=== PATIENT | male | born 1955 | race Caucasian/White ===

== ENCOUNTER → 2023-11-15 07:19 | Outpatient (REF) | payer MEDICARE, SELFPAY | LOC: RCS 07:19 | PROVIDERS: ATTENDING PHYSICIAN Internal Medicine Cardiovascular Disease; FAMILY PHYSICIAN Family Medicine | DX: I25.10 Atherosclerotic heart disease of native coronary artery without angina pectoris (principal); Z98.890 Other specified postprocedural states; E78.5 Hyperlipidemia, unspecified | CPT/HCPCS: 93017; 93350 ==

== ENCOUNTER → 2025-03-06 11:01 | Outpatient (REF) | payer MEDICARE, SELFPAY | LOC: HWRAD 11:01 | PROVIDERS: ATTENDING PHYSICIAN Surgery; FAMILY PHYSICIAN Family Medicine | DX: K43.9 Ventral hernia without obstruction or gangrene (principal) | CPT/HCPCS: 74176 ==